=== PATIENT | female | born 1955 | race Two or more races ===

== ENCOUNTER 2019-04-21 11:01 | Inpatient (IN) | payer OTHER ==
[~2019-04-21] VITALS: Ht 170.2 cm; Wt 97.5 kg
[2019-05-10] MEDS ORDERED: ADVAIR HFA 230/12 GM IH (12:12)
[2019-05-10] MEDS ORDERED: TOPAMAX50 MG PO (12:12)
[2019-05-10] MEDS ORDERED: PROAIR HFA8.5 GM IH (12:13)
[2019-05-10] MEDS ORDERED: SPIRIVA RESPIMAT4 GM IH (12:13)
[2019-05-10] MEDS ORDERED: SYNTHROID50 MCG PO (12:14)
[2019-05-10] MEDS ORDERED: SIMVASTATIN20 MG PO (12:14)
[2019-05-10] MEDS ORDERED: COZAAR25 MG PO (12:14)
[2019-05-10] MEDS ORDERED: MORPHINE SULFAT15 MG PO (12:14)
[2019-05-10] MEDS ORDERED: ASA81 MG PO (12:15)
[2019-06-03] MEDS ORDERED: MORGIDOX100 MG PO (12:39)
[2019-06-03] MEDS ORDERED: PERCOCET 5-3251 EACH PO (12:39)
== END 2019-06-03 14:49 | disposition home or self-care (01) | DRG 330 ==
LOC: SURH 05-17 07:00 → O/R 05-17 07:30 → SURG 05-17 07:30 → SURH 05-17 10:30 → SURG 05-17 15:10
PROVIDERS: ADMIT Surgery
PROC: 07BB0ZX Excision of Mesenteric Lymphatic, Open Approach, Diagnostic (ICD-10-PCS; 2019-05-17)
PROC: 0WUF0JZ Supplement Abdominal Wall with Synthetic Substitute, Open Approach (ICD-10-PCS; 2019-05-17)
PROC: 4A033R1 Measurement of Arterial Saturation, Peripheral, Percutaneous Approach (ICD-10-PCS; 2019-05-17)
PROC: 4A12X4Z Monitoring of Cardiac Electrical Activity, External Approach (ICD-10-PCS; 2019-05-17)
PROC: 3E0F7GC Introduction of Other Therapeutic Substance into Respiratory Tract, Via Natural or Artificial Opening (ICD-10-PCS; 2019-05-17)
PROC: 0DTF0ZZ Resection of Right Large Intestine, Open Approach (ICD-10-PCS; principal; 2019-05-17 07:00)
PROC: BW21Y0Z Computerized Tomography (CT Scan) of Abdomen and Pelvis using Other Contrast, Unenhanced and Enhanced (ICD-10-PCS; 2019-05-25)
PROC: 02HV33Z Insertion of Infusion Device into Superior Vena Cava, Percutaneous Approach (ICD-10-PCS; 2019-06-02)
DX: C18.2 Malignant neoplasm of ascending colon (principal); K43.0 Incisional hernia with obstruction, without gangrene; K56.51 Intestinal adhesions [bands], with partial obstruction; J95.89 Other postprocedural complications and disorders of respiratory system, not elsewhere classified; J98.11 Atelectasis; J44.1 Chronic obstructive pulmonary disease with (acute) exacerbation; T81.41XA Infection following a procedure, superficial incisional surgical site, initial encounter; R59.0 Localized enlarged lymph nodes; I11.9 Hypertensive heart disease without heart failure; E03.8 Other specified hypothyroidism; G47.33 Obstructive sleep apnea (adult) (pediatric); I67.1 Cerebral aneurysm, nonruptured; M79.7 Fibromyalgia; R14.0 Abdominal distension (gaseous); R09.02 Hypoxemia; B99.8 Other infectious disease; I87.8 Other specified disorders of veins